=== PATIENT | female | born 1970 | race Caucasian/White ===

== ENCOUNTER 2020-10-08 23:31 | Emergency (ER) | payer OTHER ==
--- NOTE | 2020-10-09 00:27 | EDM.PDOC ---
ED HPI GENERAL MEDICAL PROBLEM - General Chief Complaint: Lower Extremity Injury/Pain Stated Complaint: RIGHT LEG BLEEDING WONT STOP Time Seen by Provider: 10/09/20 00:18 Source of Information: Reports: Patient, RN Notes Reviewed - History of Present Illness INITIAL COMMENTS - FREE TEXT/NARRATIVE: 50 yr old female has had a lesion R ant. leg from an insect bite or something like that for awhile. When she scratched it not long ago started "bleeding quite vigorously". States the blood spurted, unable to get it stopped at home. Now on arrival to ED it has stopped. Not on blood thinners. - Related Data Allergies Allergy/AdvReac Type Severity Reaction Status Date / Time No Known Allergies Allergy Verified 10/08/20 23:55 Home Meds: Home Meds . [No Known Home Meds] 10/08/20 [History] Past Medical History - Past Health History Medical/Surgical History: Denies Medical/Surgical History Social & Family History - Tobacco Use Tobacco Use Status *Q: Current Every Day Tobacco User Years of Tobacco use: 20 Packs/Tins Daily: 1 Review of Systems - Review of Systems Review Of Systems: See Below Mouth/Throat: Reports: No Symptoms Respiratory: Denies: Shortness of Breath Cardiovascular: Denies: Chest Pain GI/Abdominal: Reports: No Symptoms Musculoskeletal: Reports: Other (bleeding R ant. leg) Skin: Denies: Rash Neurological: Reports: No Symptoms ED EXAM, GENERAL - Physical Exam Exam: See Below General Appearance: Alert, No Apparent Distress Head: Atraumatic Neck: Supple Respiratory/Chest: No Respiratory Distress Cardiovascular: Regular Rate, Rhythm Extremities: Other (inflamed lesion R ant. mid leg, no active bleeding at time of exam) Skin Exam: Warm, Dry, Normal Color, No Rash Course - Vital Signs Last Recorded V/S: Last Vital Signs Temp 97.7 F 10/08/20 23:52 Pulse 82 10/08/20 23:52 Resp 18 10/08/20 23:52 BP 151/82 H 10/08/20 23:52 Pulse Ox 95 10/08/20 23:52 - Re-Assessments/Exams Free Text/Narrative Re-Assessment/Exam: 10/09/20 06:19 blood was cleaned from leg, quick clot pad and pressure dressing applied with no further bleeding. Departure - Departure Time of Disposition: 00:26 Disposition: Home, Self-Care 01 Condition: Fair Clinical Impression: Bleeding from varicose veins of right lower extremity - Discharge Information Referrals: PCP,None [Primary Care Provider] - Forms: ED Department Discharge Additional Instructions: Try not to work tomorrow if possible. Rest and elevate leg as much as possible for the next few days. Leave pressure dressing on for 3 days. After that antibiotic ointment twice daily until completely healed, keep protected when outdoors or working. Return to ED as needed. Sepsis Event Note (ED) - Evaluation Sepsis Screening Result: No Definite Risk - Focused Exam Vital Signs: Vital Signs Temp Pulse Resp BP Pulse Ox 10/08/20 23:52 97.7 F 82 18 151/82 H 95
== END 2020-10-09 01:00 | disposition home or self-care (01) ==
LOC: JD.ED 23:31
DX: I83.891 Varicose veins of right lower extremity with other complications (principal); Z72.0 Tobacco use
CPT/HCPCS: 99283

== ENCOUNTER 2022-01-03 21:13 | Emergency (ER) | payer OTHER ==
[2022-01-03] MEDS ORDERED: Sodium Chloride 0.9% 10 ML Syringe FLUSH PRN (21:22)
[2022-01-03 22:11] LABS: CORONAVIRUS COVID-19 NAA NEGATIVE (NEGATIVE)
[2022-01-03] MEDS ORDERED: cefTRIAXone 2 GM in Sodium Chloride 0.9% 100 ML IV ONE (22:59)
[2022-01-03] MEDS ORDERED: Azithromycin 500 MG in Sodium Chloride 0.9% 250 ML IV ONE (23:00)
[2022-01-03] MEDS ORDERED: Sodium Chloride 0.9% 10 ML Syringe FLUSH ONE (23:07)
[2022-01-03] MEDS ORDERED: Iopamidol 755 Mg/ML 100 ML Bottle IVPUSH ONE (23:07)
[2022-01-03] MEDS ORDERED: Sodium Chloride 0.9% 100 ML IV SCH (23:15)
[2022-01-04] MEDS ORDERED: Heparin Sodium 5,000 Units/ML Vial IVPUSH STA (00:13)
[2022-01-04] MEDS ORDERED: Heparin Sodium/D5W 25,000 UNITS/500 ML BAG IV SCH (00:15)
[2022-01-04] MEDS ORDERED: Acetaminophen 325 MG Tab PO ONE (00:57)
[2022-01-04] MEDS ORDERED: Ondansetron 4 MG/2 ML SDV IVPUSH ONE (00:57)
[2022-01-04] MEDS ORDERED: Sodium Chloride 0.9% 1,000 ML IV ONE (01:33)
[2022-01-04] MEDS ORDERED: Sodium Chloride 0.9% 1,000 ML ONE (01:34)
[2022-01-04] MEDS ORDERED: Norepinephrine 4 MG in Dextrose 5% in Water 246 ML IV SCH ×2 (01:45)
[2022-01-04] MEDS ORDERED: INFUSION IV ONE ×2 (02:05→02:45)
[2022-01-04] MEDS ORDERED: ALTEPLASE IV ONE ×2 (02:05→02:45)
== END 2022-01-04 03:11 ==
LOC: JD.ED 21:13
DX: I26.99 Other pulmonary embolism without acute cor pulmonale (principal); R73.9 Hyperglycemia, unspecified; R74.8 Abnormal levels of other serum enzymes; N28.9 Disorder of kidney and ureter, unspecified; F17.210 Nicotine dependence, cigarettes, uncomplicated; Z79.899 Other long term (current) drug therapy; Z20.822 Contact with and (suspected) exposure to COVID-19
CPT/HCPCS: 0240U; 36415; 37195; 71045; 71275; 80053; 84484; 85025; 85379; 85730; 86140; 87040; 96365; 96366; 96367; 96368; 96375; 99285; A9270; J0456; J0696; J1644; J2405; J2997; J3490; J7030; J7050; J7060; Q9967

== ENCOUNTER 2023-10-24 17:34 | Emergency (ER) | payer OTHER ==
[2023-10-24] MEDS: Ketorolac 60 MG/2 ML SDV IM ONE (18:22)
[2023-10-24] MEDS: ceFAZolin 1 GM Vial IM ONE (18:22)
[2023-10-24] MEDS: Diphtheria,Pertussis(Acell),Tetanus Vaccine 0.5 ML Syringe IM ONE (18:22)
== END 2023-10-24 19:22 | disposition home or self-care (01) ==
LOC: JD.ED 17:34
DX: S61.452A Open bite of left hand, initial encounter (principal); Z23 Encounter for immunization; Z79.899 Other long term (current) drug therapy; W55.01XA Bitten by cat, initial encounter
CPT/HCPCS: 90471; 90715; 96372; 99283; J0690; J1885